=== PATIENT | male | born 1975 | race Caucasian/White ===

== ENCOUNTER 2020-07-03 16:42 | Outpatient (CLI) | payer OTHER, SELFPAY ==
--- NOTE | ~2020-07-03 | MR_ITS ---
EXAMINATION: MR brain/brain stem wo/w con EXAM DATE: 07/03/2020 17:47 INDICATION: Generalized headache, contraction of visual field. TECHNIQUE: Magnetic resonance imaging (MRI) of the brain/brain stem obtained without contrast. Sagit christofer T1, axial diffusion, gradient echo (T2*), T1, T2, FLAIR sequences obtained. Patient was then inj ected with 20 cc intravenous Multihance contrast. Axial and coronal postcontrast T1 weighted sequence s obtained. There is no prior study for comparison. FINDINGS: There are no areas of restricted diffusion to suggest acute infarction. There is no acute hemorrhage seen on the T2*, a hemosiderin sensitive sequence. No intraparenchymal brain mass. The ve ntricles are normal in size. There are no extra-axial collections. Flow voids are seen in the cereb ral arteries on the T2-weighted sequences consistent with their expected patency. The orbits are unr emarkable. Soft tissue is unremarkable. There are no areas of abnormal enhancement on the postcont rast images. IMPRESSION: 1. Unremarkable brain MRI examination. Reviewed, dictated and finalized at location A.
[2020-07-03 17:17] LABS: Estimated Glomerular Filt Rate > 60
== END 2020-07-03 16:43 | disposition home or self-care (01) ==
LOC: ANHIMG 16:52
PROVIDERS: PCP Internal Medicine; Visit Provider Internal Medicine
DX: H53.483 Generalized contraction of visual field, bilateral (principal); R51.9 Headache, unspecified
CPT/HCPCS: 70553; A9577